=== PATIENT | female | born 1990 | race Caucasian/White ===

== ENCOUNTER 2019-05-26 17:28 | Inpatient (IN) | payer BC ==
[~2019-05-26 17:28] MED LIST: Acetaminophen 1,000 MG/100 ML Infusion Bottle IV ONE; Dexamethasone 4 MG/ML 5 ML MDV IVPUSH ONE; Glycopyrrolate 0.2 MG/ML 5 ML MDV IV ONE; HYDROmorphone 2 MG/ML SDV IV ONE; Lactated Ringers 1,000 ML IV ONE; Lidocaine 2% 5 ML SDV IV ONE; Midazolam 1 MG/ML 2 ML SDV IV ONE; Neostigmine Methylsulfate 10 MG/10 ML MDV IVPUSH ONE; Ondansetron 4 MG/2 ML SDV IVPUSH ONE; Propofol 200 MG/20 ML SDV IV ONE; Rocuronium 50 MG/5 ML Vial IV ONE; Succinylcholine 200 MG/10 ML MDV IV ONE; fentaNYL 100 MCG/2 ML SDV IV ONE
--- NOTE | 2019-05-26 17:48 | EDM.PDOC ---
ED HPI GENERAL MEDICAL PROBLEM - General Chief Complaint: Abdominal Pain Stated Complaint: ABD PAIN Time Seen by Provider: 05/26/19 17:48 - History of Present Illness INITIAL COMMENTS - FREE TEXT/NARRATIVE: patient is a previously healthy 29-year-old female who presents today with concern for stomach hurting, slight amount of vomiting and feeling very lightheaded. She states she was fine last night, had a shake for breakfast this morning and was just feeling kind of bloated. She said over the course of the day she's had worsening pain in her lower abdomen, and first vomited around 2 PM. She has not had any diarrhea and there was no blood in her vomit. She has dry heaved a couple times since then. She has not really eaten anything since noon today and wasn't really very hungry. She is sexually active, using condoms for control. She just started her period a couple days ago, states that it is slight tenderness also about a week early. She denies any fever, chest pain, shortness of breath, cough, recent upper respiratory tract symptoms, only thing she noticed today otherwise was in her hands were tingling slightly when she was first over in the clinic. She has no history of any previous abdominal surgeries, had a normal vaginal delivery approximately 11 months ago. She is otherwise healthy and takes no regular medications Abdominal Pain Score (Numeric/FACES): 7 - Related Data Allergies Allergy/AdvReac Type Severity Reaction Status Date / Time tioconazole Allergy Itching Verified 05/26/19 17:37 [From Monistat 1 (tioconazole)] Home Meds: Home Meds NK [No Known Home Meds] 05/26/19 [History] Past Medical History - Past Health History Medical/Surgical History: Denies Medical/Surgical History [employer] WORK[employer] History: Reports: : 1 Para: 1 ED ROS GENERAL - Review of Systems Review Of Systems: See Below Constitutional: Reports: Chills, Weakness, Diaphoresis. Denies: Fever HEENT: Reports: No Symptoms Respiratory: Reports: No Symptoms Cardiovascular: Reports: No Symptoms Endocrine: Reports: No Symptoms GI/Abdominal: Reports: Abdominal Pain, Decreased Appetite, Distension, Nausea, Vomiting. Denies: Diarrhea, Hematemesis, Melena : Reports: No Symptoms Musculoskeletal: Reports: No Symptoms Skin: Reports: No Symptoms Neurological: Reports: No Symptoms. Denies: Headache, Numbness, Tingling, Weakness Psychiatric: Reports: No Symptoms Hematologic/Lymphatic: Reports: No Symptoms Immunologic: Reports: No Symptoms ED EXAM, GENERAL - Physical Exam Exam: See Below Free Text/Narrative:: Gen.: Alert, slightly pale and Tired appearing. head is atraumatic, neck is supple, pupils are equal and reactive, facial muscles are symmetric, throat is without erythema and mucous members are moist. There is no obvious cervical adenopathy. Lungs are clear throughout with no wheezes or crackles and heart is tachycardic but regular. Abdomen has positive bowel sounds, is soft and tender across the whole lower abdomen. ?rebound in the right lower quadrant. negative Brown sign. There are no surgical scars present. Peripheral pulses +2 in both the upper and lower extremities and there is no lower extremity edema, she has had slight cooling of her feet. There is no obvious skin lesions or rashes and patient is very well-dressed. Psych: Mood and affect are appropriate, she makes good eye contact and answers questions appropriately Course - Vital Signs Text/Narrative:: initial impressionseems unlikely to be sepsis without fever and previously had healthy 29-year-old, more worried about intra-abdominal bleeding versus something like an acute appendicitis. minimal risk factors for intestinal obstruction. Wonder about possible . Labs ordered, fluid bolus started , zofran and morphine for pain Last Recorded V/S: Last Vital Signs Temp 37.3 C 05/27/19 07:54 Pulse 114 H 05/27/19 07:54 Resp 16 05/27/19 07:54 BP 92/53 L 05/27/19 07:54 Pulse Ox 97 05/27/19 07:54 - Orders/Labs/Meds Orders: Active Orders 24 hr Category Date Time Status Patient Status [ADT] Routine ADT 05/26/19 21:03 Active Notify Provider Consults [RC] ASDIRECTED Care 05/26/19 20:42 Active Oxygen Therapy [RC] PRN Care 05/26/19 21:03 Active RT Incentive Spirometry [RC] Q2HWA Care 05/26/19 21:03 Active Up With Assistance [RC] ASDIRECTED Care 05/26/19 21:03 Active Vital Signs [RC] 08,12,16,20,00,04 Care 05/26/19 21:03 Active Consult to Physician [CONS] Urgent Cons 05/26/19 20:41 Ordered Abdomen Pelvis w Cont [CT] Stat Exams 05/26/19 18:38 Taken Ketorolac [Toradol] Med 05/26/19 21:09 Active 30 mg IVPUSH Q6H PRN Lactated Ringers [Ringers, Lactated] 1,000 ml Med 05/26/19 21:15 Active IV ASDIRECTED Morphine Med 05/26/19 17:52 Active 2 mg IVPUSH Q1H PRN Morphine Med 05/26/19 21:03 Active 2 mg IVPUSH Q1H PRN Ondansetron [Zofran] Med 05/26/19 17:52 Active 4 mg IVPUSH Q4H PRN Piperacillin/Tazobactam [Zosyn] 3.375 gm Med 05/26/19 22:00 Active Sodium Chloride 0.9% [Normal Saline] 50 ml IV Q6H Resuscitation Status Routine Resus Stat 05/26/19 21:03 Ordered Medication Orders Piperacillin Sod/Tazobactam (Sod 3.375 gm/ Sodium Chloride) 50 mls @ 100 mls/ hr IV Q6H MAYKEL Last Admin: 05/27/19 04:52 Dose: 100 mls/hr Admin: 05/26/19 21:39 Dose: 100 mls/hr Lactated Ringer's (Ringers, Lactated) 1,000 mls @ 150 mls/hr IV ASDIRECTED MAYKEL Last Admin: 05/27/19 04:49 Dose: 150 mls/hr Infusion: 05/27/19 04:49 Dose: 150 mls/hr Admin: 05/26/19 22:26 Dose: 150 mls/hr Ketorolac Tromethamine (Toradol) 30 mg IVPUSH Q6H PRN PRN Reason: Abdominal Pain Stop: 05/31/19 21:09 Last Admin: 05/27/19 08:01 Dose: 30 mg Admin: 05/26/19 22:19 Dose: 30 mg Morphine Sulfate (Morphine) 2 mg IVPUSH Q1H PRN PRN Reason: Pain Last Admin: 05/27/19 04:46 Dose: 2 mg Admin: 05/26/19 18:16 Dose: 2 mg Morphine Sulfate (Morphine) 2 mg IVPUSH Q1H PRN PRN Reason: Pain (severe 7-10) Ondansetron HCl (Zofran) 4 mg IVPUSH Q4H PRN PRN Reason: Nausea/Vomiting Last Admin: 05/26/19 18:14 Dose: 4 mg Sodium Chloride (Saline Flush) 10 ml FLUSH ASDIRECTED PRN PRN Reason: Keep Vein Open Last Admin: 05/27/19 05:35 Dose: 10 ml Labs: Laboratory Tests 05/26/19 05/26/19 05/26/19 Range/Units 14:55 17:55 17:55 WBC 30.0 H* (4.5-12.0) X10-3/uL RBC 5.31 H (3.23-5.20) x10(6)uL Hgb 14.7 (11.5-15.5) g/dL Hct 43.5 (30.0-51.3) % MCV 81.9 (80-96) fL MCH 27.6 L (27.7-33.6) pg MCHC 33.7 (32.2-35.4) g/dL RDW 13.3 (11.5-15.5) % Plt Count 319 (125-369) X10(3)uL MPV 8.7 (7.4-10.4) fL Add Manual Diff Yes Neutrophils % (Manual) 80 (46-82) % Band Neutrophils % 10 H (0-6) % Lymphocytes % (Manual) 6 L (13-37) % Monocytes % (Manual) 4 (4-12) % PT 11.3 H (8.7-11.1) INR 1.16 H (0.89-1.13) Sodium 140 (135-145) mmol/L Potassium 3.4 L (3.5-5.3) mmol/L Chloride 103 (100-110) mmol/L Carbon Dioxide 27 (21-32) mmol/L BUN 14 (7-18) mg/dL Creatinine 0.7 (0.55-1.02) mg/dL Est Cr Clr Drug Dosing TNP Estimated GFR (MDRD) > 60 (>60) BUN/Creatinine Ratio 20.0 (9-20) Glucose 98 (80-116) mg/dL Lactic Acid (0.4-2.2) mmol/L Calcium 9.0 (8.6-10.2) mg/dL Total Bilirubin 0.6 (0.1-1.3) mg/dL AST 11 (5-25) IU/L ALT 20 (12-36) U/L Alkaline Phosphatase 83 (56-112) IU/L C-Reactive Protein (0.5-0.9) mg/dL Total Protein 7.4 (6.0-8.0) g/dL Albumin 3.7 (3.5-5.2) g/dL Globulin 3.7 g/dL Albumin/Globulin Ratio 1.0 Amylase 48 (25-115) U/L HCG, Quant (<5) mIU/mL Urine Color (YELLOW) Urine Appearance (CLEAR) Urine pH (5.0-6.5) Ur Specific [place] (1.010-1.025) Urine Protein (NEGATIVE) mg/dL Urine Glucose (UA) (NORMAL) mg/dL Urine Ketones (NEGATIVE) mg/dL Urine Occult Blood (NEGATIVE) Urine Nitrite (NEGATIVE) Urine Bilirubin (NEGATIVE) Urine Urobilinogen (NEGATIVE) mg/dL Ur Leukocyte Esterase (NEGATIVE) Urine RBC (0-5) Urine WBC (0-5) Ur Squamous Epith Cells (NS,R,O) Urine Bacteria (NS) 05/26/19 05/26/19 05/26/19 Range/Units 17:55 17:55 20:19 WBC (4.5-12.0) X10-3/uL RBC (3.23-5.20) x10(6)uL Hgb (11.5-15.5) g/dL Hct (30.0-51.3) % MCV (80-96) fL MCH (27.7-33.6) pg MCHC (32.2-35.4) g/dL RDW (11.5-15.5) % Plt Count (125-369) X10(3)uL MPV (7.4-10.4) fL Add Manual Diff Neutrophils % (Manual) (46-82) % Band Neutrophils % (0-6) % Lymphocytes % (Manual) (13-37) % Monocytes % (Manual) (4-12) % PT (8.7-11.1) INR (0.89-1.13) Sodium (135-145) mmol/L Potassium (3.5-5.3) mmol/L Chloride (100-110) mmol/L Carbon Dioxide (21-32) mmol/L BUN (7-18) mg/dL Creatinine (0.55-1.02) mg/dL Est Cr Clr Drug Dosing Estimated GFR (MDRD) (>60) BUN/Creatinine Ratio (9-20) Glucose (80-116) mg/dL Lactic Acid 1.6 (0.4-2.2) mmol/L Calcium (8.6-10.2) mg/dL Total Bilirubin (0.1-1.3) mg/dL AST (5-25) IU/L ALT (12-36) U/L Alkaline Phosphatase (56-112) IU/L C-Reactive Protein 5.4 H* (0.5-0.9) mg/dL Total Protein (6.0-8.0) g/dL Albumin (3.5-5.2) g/dL Globulin g/dL Albumin/Globulin Ratio Amylase (25-115) U/L HCG, Quant < 5 L (<5) mIU/mL Urine Color Yellow (YELLOW) Urine Appearance Clear (CLEAR) Urine pH 6.0 (5.0-6.5) Ur Specific [place] 1.010 (1.010-1.025) Urine Protein Negative (NEGATIVE) mg/dL Urine Glucose (UA) Normal (NORMAL) mg/dL Urine Ketones 15 H (NEGATIVE) mg/dL Urine Occult Blood Moderate H (NEGATIVE) Urine Nitrite Negative (NEGATIVE) Urine Bilirubin Negative (NEGATIVE) Urine Urobilinogen Normal (NEGATIVE) mg/dL Ur Leukocyte Esterase Negative (NEGATIVE) Urine RBC 5-10 H (0-5) Urine WBC 0-5 (0-5) Ur Squamous Epith Cells Occasional (NS,R,O) Urine Bacteria Few H (NS) Meds: Medications Generic Name Dose Route Start Last Admin Trade Name Freq PRN Reason Stop Dose Admin Piperacillin Sod/Tazobactam 50 mls @ 100 mls/hr 05/26/19 22:00 05/27/19 04:52 Sod 3.375 gm/ Sodium Chloride IV 100 mls/hr Q6H MAYKEL Administration Lactated Ringer's 1,000 mls @ 150 mls/hr 05/26/19 21:15 05/27/19 04:49 Ringers, Lactated IV 150 mls/hr ASDIRECTED MAYKEL Administration Ketorolac Tromethamine 30 mg 05/26/19 21:09 05/27/19 08:01 Toradol IVPUSH 05/31/19 21:09 30 mg Q6H PRN Administration Abdominal Pain Morphine Sulfate 2 mg 05/26/19 17:52 05/27/19 04:46 Morphine IVPUSH 2 mg Q1H PRN Administration Pain Morphine Sulfate 2 mg 05/26/19 21:03 Morphine IVPUSH Q1H PRN Pain (severe 7-10) Ondansetron HCl 4 mg 05/26/19 17:52 05/26/19 18:14 Zofran IVPUSH 4 mg Q4H PRN Administration Nausea/Vomiting Sodium Chloride 10 ml 05/27/19 05:59 05/27/19 05:35 Saline Flush FLUSH 10 ml ASDIRECTED PRN Administration Keep Vein Open Discontinued Medications Generic Name Dose Route Start Last Admin Trade Name Freq PRN Reason Stop Dose Admin Cefoxitin Sodium 2 gm 05/26/19 20:20 05/26/19 20:33 Mefoxin IVPUSH 05/26/19 20:21 2 gm ONETIME ONE Administration Sodium Chloride 1,000 mls @ 999 mls/hr 05/26/19 17:49 05/26/19 18:00 Normal Saline IV 05/26/19 18:49 999 mls/hr .BOLUS ONE Administration Sodium Chloride 1,000 mls @ 1,000 mls/hr 05/26/19 19:13 05/26/19 19:00 Normal Saline IV 05/26/19 20:12 1,000 mls/hr .BOLUS ONE Administration Iopamidol 75 ml 05/26/19 19:04 05/26/19 19:20 Isovue-370 (76%) IV 05/26/19 19:05 75 ml ONETIME ONE Administration Morphine Sulfate 4 mg 05/26/19 19:13 05/26/19 19:29 Morphine IVPUSH 05/26/19 19:14 4 mg ONETIME ONE Administration - Re-Assessments/Exams Free Text/Narrative Re-Assessment/Exam: 05/26/19 18:40 CMP unremarkable, will get CT abdomen/pelvis with contrast CBC still pending elevated CRP, lactic acid normal morphine helpful for pain signout given to Dr. Jackson at 1900 Departure - Departure Time of Disposition: 00:00 Disposition: Refer to Observation Clinical Impression: Peritonitis (acute) generalized - Discharge Information *PRESCRIPTION DRUG MONITORING PROGRAM REVIEWED*: Not Applicable *COPY OF PRESCRIPTION DRUG MONITORING REPORT IN PATIENT PANCHITO: Not Applicable - My Orders Last 24 Hours: My Active Orders 05/26/19 17:52 Morphine 2 mg IVPUSH Q1H PRN Ondansetron [Zofran] 4 mg IVPUSH Q4H PRN 05/26/19 18:38 Abdomen Pelvis w Cont [CT] Stat - Assessment/Plan Last 24 Hours: My Active Orders 05/26/19 17:52 Morphine 2 mg IVPUSH Q1H PRN Ondansetron [Zofran] 4 mg IVPUSH Q4H PRN 05/26/19 18:38 Abdomen Pelvis w Cont [CT] Stat
[2019-05-26] MEDS ORDERED: Sodium Chloride 0.9% 1,000 ML IV ONE ×2 (17:49→19:13)
[2019-05-26] MEDS: Ondansetron 4 MG/2 ML SDV IVPUSH PRN (18:14)
[2019-05-26] MEDS: Morphine 2 MG/ML Syringe IVPUSH PRN (18:16)
[2019-05-26] MEDS ORDERED: Iopamidol 755 Mg/ML 75 ML Bottle IV ONE (19:04)
[2019-05-26] MEDS ORDERED: Morphine 4 MG/ML Syringe IVPUSH ONE (19:13)
[2019-05-26] MEDS ORDERED: cefOXitin 2 GM Vial IVPUSH ONE (20:20)
[2019-05-26] MEDS ORDERED: Morphine 2 MG/ML Syringe IVPUSH PRN (21:03)
[2019-05-26] MEDS: Piperacillin/Tazobactam 3.375 GM in Sodium Chloride 0.9% 50 ML IV SCH (21:39)
[2019-05-26] MEDS: Ketorolac 30 MG/ML SDV IVPUSH PRN (22:19)
[2019-05-26] MEDS: Lactated Ringers 1,000 ML IV SCH (22:26)
[2019-05-27] MEDS: Morphine 2 MG/ML Syringe IVPUSH PRN ×2 (04:46→12:20)
[2019-05-27] MEDS: Lactated Ringers 1,000 ML IV SCH ×3 (04:49→20:39)
[2019-05-27] MEDS: Piperacillin/Tazobactam 3.375 GM in Sodium Chloride 0.9% 50 ML IV SCH ×4 (04:52→21:22)
[2019-05-27] MEDS: Sodium Chloride 0.9% 10 ML Syringe FLUSH PRN (05:35)
--- NOTE | 2019-05-27 07:55 | ER ---
DATE SEEN: 05/26/2019 ADDENDUM: I saw this patient after I came in at 1900 hours. The patient was initially seen by Dr. Allyssa Thurman. She presented with acute abdominal pain in the right lower quadrant and the left lower quadrant, was sudden onset. Described pain to be moderate to severe. One episode of vomiting, but no constipation or diarrhea. Denied fever or urinary symptoms and no . PHYSICAL EXAMINATION: GENERAL: She is sick-appearing. VITAL SIGNS: Repeat blood pressure is 105/64 and pulse is 126. ABDOMEN: Soft, mildly distended and tender in the right lower and left lower quadrants with rebound and mild rigidity. Bowel sounds are present. CHEST and HEART: Normal to auscultation. LABORATORY DATA: White cell count 30,000. CT: Inflammation, possibly peritonitis with no specific source noted. IMPRESSION: Acute peritonitis. PLAN: Due to leukocytosis, tachycardia, I gave 2 L of crystalloid, and 1 dose of cefoxitin. I consulted Dr. Shoemaker. She was also given some morphine for pain control. /[id number] ROSELYN/JOSE ANTONIO
[2019-05-27] MEDS: Ketorolac 30 MG/ML SDV IVPUSH PRN ×2 (08:01→15:28)
--- NOTE | 2019-05-27 08:02 | HP ---
H&P AND CONSULTATION REPORT DATE SEEN: 05/26/2019 HISTORY OF PRESENT ILLNESS: This 29-year-old female was seen in the emergency room at the request of Dr. Jackson for evaluation of abdominal pain. The patient began feeling ill early this afternoon, although was having some mild abdominal fullness this morning. She left work about 1400 hours and was nauseous and did have an emesis. She also started having worsening abdominal pain, mostly in her lower abdomen at that time. She did not have any fever, sweats or chills. Last bowel movement was this afternoon, which was soft, but otherwise normal. She started her menses yesterday. Appetite has been good up to this point, and she has been feeling well prior to today. PAST MEDICAL HISTORY: No previous abdominal surgeries or serious medical problems. MEDICATIONS: Reviewed. ALLERGIES: Medical allergies reviewed. REVIEW OF SYSTEMS: Unchanged from when she was seen by the emergency room physician. PHYSICAL EXAMINATION: GENERAL: Reveals a pleasant lady who appears somewhat pale, but in no acute distress. VITAL SIGNS: Her vitals are reviewed, and she is tachycardic. She had been afebrile up to now, where she did have a temperature of 102. Lungs: Clear. Respirations are nonlabored. HEART: Tachycardic, but no murmur. ABDOMEN: Soft and flat with diffuse tenderness. This seems to be more so in the lower abdomen. There are no hernias or masses that are palpable. LABORATORY DATA: Laboratory information is reviewed. WBC is 30,000. CRP is elevated. Urinalysis is essentially normal. IMAGING STUDIES: CT scan was reviewed with Dr. Joya. It is unclear as to what is causing her pain. There is inflammation throughout her lower abdomen, and it appears there is an ileus with the dilated fluid-filled loops of small bowel. There is no evidence of free air or perforation. Appendix is not clearly visualized. This may represent appendicitis with peritonitis. ASSESSMENT: Abdominal pain with elevated WBC. PLAN: Findings were reviewed with the patient, and with the amount of inflammation present, I feel laparoscopic appendectomy would be very difficult and likely converted to an open procedure. Crohn's disease or other inflammatory process is also a possibility. I recommended that she be admitted to the hospital and started on IV antibiotics and observed for the next 12 to 24 hours. If she improves, further evaluation and probable interval appendectomy would be performed. If she is not improving tomorrow, then surgery would be likely. /[id number] MAHENDRA/JOSE ANTONIO DE LEON
--- NOTE | 2019-05-27 09:17 | CT ---
INDICATION: Abdominal pain, tachycardia, white blood count 30,000. CT ABDOMEN AND PELVIS WITH CONTRAST: Spiral 3.75 mm axial sections were obtained through the abdomen and pelvis with 75 mL Isovue 370 at 2 mL/second, with sagittal and coronal reconstructions, 05/26/19 - no comparisons. Total exam DLP = 364.93 mGy-cm. Lower lung collins and pleural spaces visualized appeared normal. The upper abdominal organs appeared normal, including the gallbladder, which does appear somewhat distended, but this may be on the basis of NPO status. No demonstrated gallstones were seen. Multiple loops of dilated small bowel were noted with air fluid levels in a stepladder fashion in the abdomen down to the right lower quadrant, where a long loop of what appears to be terminal ileum has a markedly thickened wall. There is also a tiny gas bubble surrounded by relatively high density tissue in the pericecal area, which could represent appendicitis with possibility of abscess in that area. Additionally, there is fluid in the pericolic gutter extending into the pelvis with moderate ascites in the pelvis. There is gas and stool in the colon distal to the apparent obstructive process, which may be on a paralytic basis, rather than a mechanically obstructive basis. No other organomegaly or mass lesions were identified in the abdomen or pelvis. No definite pathologic calcifications were seen. No evidence of free air was identified. No ventral hernia or inguinal hernia was seen. No definite retroperitoneal mass is noted. IMPRESSION: Findings are compatible with peritonitis, possibly with a small abscess, pericecal in location, with inflammatory process of terminal ileum with thickened wall, adjacent peritonitis and ascites extending into the pelvis. The appendix itself was not definitely visualized, although appendicitis certainly cannot be excluded as the etiology of at least a portion of these findings. Report was called to Dr. Jackson at 2008 hours on 05/26/19. [facility] CENTERAnjana
[2019-05-27] MEDS: Ondansetron 4 MG/2 ML SDV IVPUSH PRN (12:20)
--- NOTE | 2019-05-27 13:02 | PCM.PN ---
- General Info Date of Service: 05/27/19 Functional Status: Reports: Pain Controlled, Ambulating, Urinating - Review of Systems General: Reports: Fever (last pm, none since). Denies: Chills Pulmonary: Reports: No Symptoms Cardiovascular: Reports: No Symptoms Gastrointestinal: Reports: Abdominal Pain (a little better, more localized to lower abdomen). Denies: Flatus, Nausea, Vomiting Genitourinary: Reports: No Symptoms - Patient Data Vitals - Most Recent: Last Vital Signs Temp 99.5 F 05/27/19 12:00 Pulse 105 H 05/27/19 12:00 Resp 16 05/27/19 12:00 BP 95/58 L 05/27/19 12:00 Pulse Ox 99 05/27/19 12:00 Weight - Most Recent: 66.315 kg I&O - Last 24 Hours: Intake & Output 05/26/19 05/27/19 05/27/19 22:59 06:59 14:59 Output Total 100 Balance -100 Lab Results Last 24 Hours: Laboratory Results - last 24 hr 05/26/19 05/26/19 05/26/19 Range/Units 14:55 17:55 17:55 WBC 30.0 H* (4.5-12.0) X10-3/uL RBC 5.31 H (3.23-5.20) x10(6)uL Hgb 14.7 (11.5-15.5) g/dL Hct 43.5 (30.0-51.3) % MCV 81.9 (80-96) fL MCH 27.6 L (27.7-33.6) pg MCHC 33.7 (32.2-35.4) g/dL RDW 13.3 (11.5-15.5) % Plt Count 319 (125-369) X10(3)uL MPV 8.7 (7.4-10.4) fL Add Manual Diff Yes Neutrophils % (Manual) 80 (46-82) % Band Neutrophils % 10 H (0-6) % Lymphocytes % (Manual) 6 L (13-37) % Monocytes % (Manual) 4 (4-12) % Hypersegmented Neuts Toxic Granulation (NOT SEEN) PT 11.3 H (8.7-11.1) INR 1.16 H (0.89-1.13) Sodium 140 (135-145) mmol/L Potassium 3.4 L (3.5-5.3) mmol/L Chloride 103 (100-110) mmol/L Carbon Dioxide 27 (21-32) mmol/L BUN 14 (7-18) mg/dL Creatinine 0.7 (0.55-1.02) mg/dL Est Cr Clr Drug Dosing TNP Estimated GFR (MDRD) > 60 (>60) BUN/Creatinine Ratio 20.0 (9-20) Glucose 98 (80-116) mg/dL Lactic Acid (0.4-2.2) mmol/L Calcium 9.0 (8.6-10.2) mg/dL Total Bilirubin 0.6 (0.1-1.3) mg/dL AST 11 (5-25) IU/L ALT 20 (12-36) U/L Alkaline Phosphatase 83 (56-112) IU/L C-Reactive Protein (0.5-0.9) mg/dL Total Protein 7.4 (6.0-8.0) g/dL Albumin 3.7 (3.5-5.2) g/dL Globulin 3.7 g/dL Albumin/Globulin Ratio 1.0 Amylase 48 (25-115) U/L HCG, Quant (<5) mIU/mL Urine Color (YELLOW) Urine Appearance (CLEAR) Urine pH (5.0-6.5) Ur Specific [place] (1.010-1.025) Urine Protein (NEGATIVE) mg/dL Urine Glucose (UA) (NORMAL) mg/dL Urine Ketones (NEGATIVE) mg/dL Urine Occult Blood (NEGATIVE) Urine Nitrite (NEGATIVE) Urine Bilirubin (NEGATIVE) Urine Urobilinogen (NEGATIVE) mg/dL Ur Leukocyte Esterase (NEGATIVE) Urine RBC (0-5) Urine WBC (0-5) Ur Squamous Epith Cells (NS,R,O) Urine Bacteria (NS) 05/26/19 05/26/19 05/26/19 Range/Units 17:55 17:55 20:19 WBC (4.5-12.0) X10-3/uL RBC (3.23-5.20) x10(6)uL Hgb (11.5-15.5) g/dL Hct (30.0-51.3) % MCV (80-96) fL MCH (27.7-33.6) pg MCHC (32.2-35.4) g/dL RDW (11.5-15.5) % Plt Count (125-369) X10(3)uL MPV (7.4-10.4) fL Add Manual Diff Neutrophils % (Manual) (46-82) % Band Neutrophils % (0-6) % Lymphocytes % (Manual) (13-37) % Monocytes % (Manual) (4-12) % Hypersegmented Neuts Toxic Granulation (NOT SEEN) PT (8.7-11.1) INR (0.89-1.13) Sodium (135-145) mmol/L Potassium (3.5-5.3) mmol/L Chloride (100-110) mmol/L Carbon Dioxide (21-32) mmol/L BUN (7-18) mg/dL Creatinine (0.55-1.02) mg/dL Est Cr Clr Drug Dosing Estimated GFR (MDRD) (>60) BUN/Creatinine Ratio (9-20) Glucose (80-116) mg/dL Lactic Acid 1.6 (0.4-2.2) mmol/L Calcium (8.6-10.2) mg/dL Total Bilirubin (0.1-1.3) mg/dL AST (5-25) IU/L ALT (12-36) U/L Alkaline Phosphatase (56-112) IU/L C-Reactive Protein 5.4 H* (0.5-0.9) mg/dL Total Protein (6.0-8.0) g/dL Albumin (3.5-5.2) g/dL Globulin g/dL Albumin/Globulin Ratio Amylase (25-115) U/L HCG, Quant < 5 L (<5) mIU/mL Urine Color Yellow (YELLOW) Urine Appearance Clear (CLEAR) Urine pH 6.0 (5.0-6.5) Ur Specific [place] 1.010 (1.010-1.025) Urine Protein Negative (NEGATIVE) mg/dL Urine Glucose (UA) Normal (NORMAL) mg/dL Urine Ketones 15 H (NEGATIVE) mg/dL Urine Occult Blood Moderate H (NEGATIVE) Urine Nitrite Negative (NEGATIVE) Urine Bilirubin Negative (NEGATIVE) Urine Urobilinogen Normal (NEGATIVE) mg/dL Ur Leukocyte Esterase Negative (NEGATIVE) Urine RBC 5-10 H (0-5) Urine WBC 0-5 (0-5) Ur Squamous Epith Cells Occasional (NS,R,O) Urine Bacteria Few H (NS) 05/27/19 Range/Units 06:00 WBC 22.6 H (4.5-12.0) X10-3/uL RBC 3.99 (3.23-5.20) x10(6)uL Hgb 11.0 L D (11.5-15.5) g/dL Hct 32.4 D (30.0-51.3) % MCV 81.2 (80-96) fL MCH 27.7 (27.7-33.6) pg MCHC 34.1 (32.2-35.4) g/dL RDW 13.4 (11.5-15.5) % Plt Count 253 (125-369) X10(3)uL MPV 8.5 (7.4-10.4) fL Add Manual Diff Yes Neutrophils % (Manual) 87 H (46-82) % Band Neutrophils % 4 (0-6) % Lymphocytes % (Manual) 6 L (13-37) % Monocytes % (Manual) 3 L (4-12) % Hypersegmented Neuts Moderate Toxic Granulation Moderate H (NOT SEEN) PT (8.7-11.1) INR (0.89-1.13) Sodium (135-145) mmol/L Potassium (3.5-5.3) mmol/L Chloride (100-110) mmol/L Carbon Dioxide (21-32) mmol/L BUN (7-18) mg/dL Creatinine (0.55-1.02) mg/dL Est Cr Clr Drug Dosing Estimated GFR (MDRD) (>60) BUN/Creatinine Ratio (9-20) Glucose (80-116) mg/dL Lactic Acid (0.4-2.2) mmol/L Calcium (8.6-10.2) mg/dL Total Bilirubin (0.1-1.3) mg/dL AST (5-25) IU/L ALT (12-36) U/L Alkaline Phosphatase (56-112) IU/L C-Reactive Protein (0.5-0.9) mg/dL Total Protein (6.0-8.0) g/dL Albumin (3.5-5.2) g/dL Globulin g/dL Albumin/Globulin Ratio Amylase (25-115) U/L HCG, Quant (<5) mIU/mL Urine Color (YELLOW) Urine Appearance (CLEAR) Urine pH (5.0-6.5) Ur Specific [place] (1.010-1.025) Urine Protein (NEGATIVE) mg/dL Urine Glucose (UA) (NORMAL) mg/dL Urine Ketones (NEGATIVE) mg/dL Urine Occult Blood (NEGATIVE) Urine Nitrite (NEGATIVE) Urine Bilirubin (NEGATIVE) Urine Urobilinogen (NEGATIVE) mg/dL Ur Leukocyte Esterase (NEGATIVE) Urine RBC (0-5) Urine WBC (0-5) Ur Squamous Epith Cells (NS,R,O) Urine Bacteria (NS) Med Orders - Current: Current Medications Piperacillin Sod/Tazobactam (Sod 3.375 gm/ Sodium Chloride) 50 mls @ 100 mls/ hr IV Q6H [facility] Last Admin: 05/27/19 09:33 Dose: 100 mls/hr Lactated Ringer's (Ringers, Lactated) 1,000 mls @ 150 mls/hr IV ASDIRECTED [facility] Last Admin: 05/27/19 04:49 Dose: 150 mls/hr Ketorolac Tromethamine (Toradol) 30 mg IVPUSH Q6H PRN PRN Reason: Abdominal Pain Stop: 05/31/19 21:09 Last Admin: 05/27/19 08:01 Dose: 30 mg Morphine Sulfate (Morphine) 2 mg IVPUSH Q1H PRN PRN Reason: Pain Last Admin: 05/27/19 12:20 Dose: 2 mg Morphine Sulfate (Morphine) 2 mg IVPUSH Q1H PRN PRN Reason: Pain (severe 7-10) Ondansetron HCl (Zofran) 4 mg IVPUSH Q4H PRN PRN Reason: Nausea/Vomiting Last Admin: 05/27/19 12:20 Dose: 4 mg Sodium Chloride (Saline Flush) 10 ml FLUSH ASDIRECTED PRN PRN Reason: Keep Vein Open Last Admin: 05/27/19 05:35 Dose: 10 ml Discontinued Medications Cefoxitin Sodium (Mefoxin) 2 gm IVPUSH ONETIME ONE Stop: 05/26/19 20:21 Last Admin: 05/26/19 20:33 Dose: 2 gm Sodium Chloride (Normal Saline) 1,000 mls @ 999 mls/hr IV .BOLUS ONE Stop: 05/26/19 18:49 Last Admin: 05/26/19 18:00 Dose: 999 mls/hr Sodium Chloride (Normal Saline) 1,000 mls @ 1,000 mls/hr IV .BOLUS ONE Stop: 05/26/19 20:12 Last Admin: 05/26/19 19:00 Dose: 1,000 mls/hr Iopamidol (Isovue-370 (76%)) 75 ml IV ONETIME ONE Stop: 05/26/19 19:05 Last Admin: 05/26/19 19:20 Dose: 75 ml Morphine Sulfate (Morphine) 4 mg IVPUSH ONETIME ONE Stop: 05/26/19 19:14 Last Admin: 05/26/19 19:29 Dose: 4 mg - Exam General: Alert, Oriented Lungs: Clear to Auscultation, Normal Respiratory Effort GI/Abdominal Exam: Soft, No Mass, Distended (slightly), Tender (in lower abd, less than last pm). No: Guarding, Rigid - Problem List Review Problem List Initiated/Reviewed/Updated: Yes - My Orders Last 24 Hours: My Active Orders 05/26/19 21:03 Patient Status [ADT] Routine Oxygen Therapy [RC] PRN RT Incentive Spirometry [RC] Q2HWA Up With Assistance [RC] ASDIRECTED Vital Signs [RC] 08,12,16,20,00,04 Morphine 2 mg IVPUSH Q1H PRN Resuscitation Status Routine 05/26/19 21:09 Ketorolac [Toradol] 30 mg IVPUSH Q6H PRN 05/26/19 21:15 Lactated Ringers [Ringers, Lactated] 1,000 ml IV ASDIRECTED 05/26/19 22:00 Piperacillin/Tazobactam [Zosyn] 3.375 gm Sodium Chloride 0.9% [Normal Saline] 50 ml IV Q6H 05/27/19 05:59 Sodium Chloride 0.9% [Saline Flush] 10 ml FLUSH ASDIRECTED PRN - Assessment Assessment:: Abd Pain, improved Elevated WBC, improved - Plan Plan:: Will cont IV antibiotics Recheck labs in am
--- NOTE | 2019-05-27 21:28 | PCM.SN ---
- Free Text/Narrative Note: Patient has had 2 high fever spikes this pm, pain about the same. Recommend exp laparoscopy, possible open to find source of infection. She understands this could include appy, bowel resection, or ostomy. present, consent obtained.
--- NOTE | 2019-05-27 23:44 | PCM.OPNOTE ---
- General Post-Op/Procedure Note Date of Surgery/Procedure: 05/27/19 Operative Procedure(s): Expl Lap, appy Findings: Crohn's of terminal ileum Pre Op Diagnosis: Acute Abd Post-Op Diagnosis: Same Anesthesia Technique: General ET Tube Primary Surgeon: Osmany Shoemaker Counter Clerk [employer]ractor [employer]: Cliff Jaramillo Pathology: Appendix cultures EBL in mLs: 25 Complications: None Condition: Stable Free Text/Narrative:: Intake & Output 05/27/19 05/27/19 05/28/19 14:59 22:59 06:59 Intake Total 1046 Output Total 350 Balance 696
[2019-05-28] MEDS: Pantoprazole 40 MG Vial IVPUSH SCH ×2 (01:13→23:18)
[2019-05-28] MEDS: Hydrocortisone Sodium Succinate 100 MG/2 ML SDV IV SCH ×3 (01:16→23:13)
--- NOTE | 2019-05-28 02:24 | OR ---
DATE OF OPERATION: 05/27/2019 SURGEON: Osmany Shoemaker MD PREOPERATIVE DIAGNOSIS: Acute abdominal pain with fevers and elevated white blood cell count. POSTOPERATIVE DIAGNOSIS: Crohn disease of terminal ileum. PROCEDURE PERFORMED: Exploratory laparoscopy converted to laparotomy with appendectomy and irrigation of peritoneal cavity. DIGITAL X RAY SERVICE ENGINEER: Cliff Jaramillo MD. He was integral for assistance and retraction and reducing surgical time. ANESTHESIA: General. DESCRIPTION OF PROCEDURE: The patient was brought to the operating room, where general endotracheal anesthesia was administered. The abdomen was prepped with ChloraPrep and draped sterilely. An infraumbilical incision was made and extended into the peritoneal cavity without difficulty. Two 5 mm ports were placed inferiorly. The general exploration revealed inflammation in the right lower quadrant with a fair amount of brownish yellow peritoneal fluid present. This was aspirated and sent for culture. Approximately 500 mL of ascites fluid was present. I was able to separate the inflammatory terminal ileum from the cecum and removed the adherent omentum, but was unable to identify any appendix. Visualization was hard because of all the swelling. Since I could not be certain what was going on and could not locate the appendix, I converted this to an open procedure through a lower midline incision. [employer] Retractor System was set up. The terminal ileum and cecum were off the right sidewall to help with visualization. The appendix was identified as retrocecal and retroperitoneal and was normal in appearance. The last 30 cm of the terminal ileum was classic for Crohn disease with thickening of the mesentery and fat creeping along the bowel surface. There was no perforation, abscess, or stricture visualized. Her adnexa were normal to palpation. The sigmoid colon had hard stool, but was otherwise normal to palpation. No other abnormalities were seen or palpated. The appendix was removed by at its base and doubly tying it with 0 Vicryl and then transecting it. Mesoappendix was taken down with hemostats and 0 Vicryl ties. Appendix will be sent for pathology review. There was a small serosal tear on the cecum from the mobilization that was not causing any problems and nothing was done with it. The abdomen was irrigated with a liter of warm saline and return was clear and hemostasis assured. The stomach was palpated and was not distended, so a nasogastric tube was not placed. Fascia was closed with running #2 Prolene. Skin was closed with bethany. A sterile dressing was applied. The patient tolerated the procedure well. ESTIMATED BLOOD LOSS: 25 mL. DISPOSITION: She returned to postanesthesia in stable condition. /[id number] MAHENDRA/JOSE ANTONIO
[2019-05-28] MEDS: Ketorolac 30 MG/ML SDV IVPUSH PRN ×4 (03:34→23:15)
[2019-05-28] MEDS: Piperacillin/Tazobactam 3.375 GM in Sodium Chloride 0.9% 50 ML IV SCH ×4 (03:37→21:41)
[2019-05-28] MEDS: Lactated Ringers 1,000 ML IV SCH ×3 (08:07→23:24)
--- NOTE | 2019-05-28 15:46 | PCM.SURGPN ---
- General Info Date of Service: 05/28/19 POD#: 1 Functional Status: Reports: Pain Controlled, Ambulating, Urinating - Review of Systems General: Reports: No Symptoms. Denies: Fever Pulmonary: Reports: No Symptoms Cardiovascular: Reports: No Symptoms Gastrointestinal: Reports: Abdominal Pain (mild incisional). Denies: Flatus, Nausea Genitourinary: Reports: No Symptoms - Patient Data Vitals - Most Recent: Last Vital Signs Temp 98.8 F 05/28/19 12:00 Pulse 68 05/28/19 12:00 Resp 14 05/28/19 12:00 BP 99/64 05/28/19 12:00 Pulse Ox 99 05/28/19 12:00 Weight - Most Recent: 66.315 kg I&O - Last 24 Hours: Intake & Output 05/28/19 05/28/19 05/28/19 06:59 14:59 22:59 Intake Total 1500 635 Balance 1500 635 Lab Results Last 24 Hrs: Laboratory Results - last 24 hr 05/28/19 05/28/19 Range/Units 06:48 06:48 WBC 26.1 H (4.5-12.0) X10-3/uL RBC 3.69 (3.23-5.20) x10(6)uL Hgb 10.6 L (11.5-15.5) g/dL Hct 30.6 (30.0-51.3) % MCV 82.8 (80-96) fL MCH 28.8 (27.7-33.6) pg MCHC 34.7 (32.2-35.4) g/dL RDW 13.4 (11.5-15.5) % Plt Count 212 (125-369) X10(3)uL MPV 9.1 (7.4-10.4) fL Add Manual Diff Yes Neutrophils % (Manual) 92 H (46-82) % Band Neutrophils % 6 (0-6) % Lymphocytes % (Manual) 2 L (13-37) % Hypersegmented Neuts Few Toxic Granulation Moderate H (NOT SEEN) C-Reactive Protein 49.5 H* (0.5-0.9) mg/dL Med Orders - Current: Current Medications Hydrocortisone Sodium Succinate (Solu-Cortef) 50 mg IV Q12H [facility] Last Admin: 05/28/19 10:55 Dose: 50 mg Piperacillin Sod/Tazobactam (Sod 3.375 gm/ Sodium Chloride) 50 mls @ 100 mls/ hr IV Q6H [facility] Last Admin: 05/28/19 10:25 Dose: 100 mls/hr Lactated Ringer's (Ringers, Lactated) 1,000 mls @ 150 mls/hr IV ASDIRECTED [facility] Last Admin: 05/28/19 08:07 Dose: 150 mls/hr Ketorolac Tromethamine (Toradol) 30 mg IVPUSH Q6H PRN PRN Reason: Abdominal Pain Stop: 05/31/19 21:09 Last Admin: 05/28/19 10:22 Dose: 30 mg Morphine Sulfate (Morphine) 2 mg IVPUSH Q1H PRN PRN Reason: Pain Last Admin: 05/27/19 12:20 Dose: 2 mg Morphine Sulfate (Morphine) 2 mg IVPUSH Q1H PRN PRN Reason: Pain (severe 7-10) Ondansetron HCl (Zofran) 4 mg IVPUSH Q4H PRN PRN Reason: Nausea/Vomiting Last Admin: 05/27/19 12:20 Dose: 4 mg Pantoprazole Sodium (Protonix Iv) 40 mg IVPUSH Q24H [facility] Last Admin: 05/28/19 01:13 Dose: 40 mg Sodium Chloride (Saline Flush) 10 ml FLUSH ASDIRECTED PRN PRN Reason: Keep Vein Open Last Admin: 05/27/19 05:35 Dose: 10 ml Discontinued Medications Cefoxitin Sodium (Mefoxin) 2 gm IVPUSH ONETIME ONE Stop: 05/26/19 20:21 Last Admin: 05/26/19 20:33 Dose: 2 gm Sodium Chloride (Normal Saline) 1,000 mls @ 999 mls/hr IV .BOLUS ONE Stop: 05/26/19 18:49 Last Admin: 05/26/19 18:00 Dose: 999 mls/hr Sodium Chloride (Normal Saline) 1,000 mls @ 1,000 mls/hr IV .BOLUS ONE Stop: 05/26/19 20:12 Last Admin: 05/26/19 19:00 Dose: 1,000 mls/hr Iopamidol (Isovue-370 (76%)) 75 ml IV ONETIME ONE Stop: 05/26/19 19:05 Last Admin: 05/26/19 19:20 Dose: 75 ml Morphine Sulfate (Morphine) 4 mg IVPUSH ONETIME ONE Stop: 05/26/19 19:14 Last Admin: 05/26/19 19:29 Dose: 4 mg - Exam Wound/Incisions: Dressing Dry and Intact General: Alert, Oriented Lungs: Clear to Auscultation, Normal Respiratory Effort GI/Abdominal Exam: Soft, Distended (mild), Tender (minimal incisional) - Problem List Review Problem List Initiated/Reviewed/Updated: Yes - My Orders Last 24 Hours: Active Orders 24 hr Category Date Time Status Admission Status [Patient Status] [ADT] Routine ADT 05/28/19 00:10 Active CULTURE ANAEROBIC [RM] Routine Lab 05/27/19 22:40 Received CULTURE BLOOD [BC] Routine Lab 05/27/19 16:02 Received CULTURE ROUTINE + SMEAR [RM] Routine Lab 05/27/19 22:40 Received Hydrocortisone Sod Succinate [Solu-CORTEF] Med 05/27/19 23:45 Active 50 mg IV Q12H Pantoprazole [ProTONIX IV] Med 05/27/19 23:45 Active 40 mg IVPUSH Q24H Medication Orders Hydrocortisone Sodium Succinate (Solu-Cortef) 50 mg IV Q12H [facility] Last Admin: 05/28/19 10:55 Dose: 50 mg Admin: 05/28/19 01:16 Dose: 50 mg Piperacillin Sod/Tazobactam (Sod 3.375 gm/ Sodium Chloride) 50 mls @ 100 mls/ hr IV Q6H [facility] Last Admin: 05/28/19 10:25 Dose: 100 mls/hr Admin: 05/28/19 03:37 Dose: 100 mls/hr Admin: 05/27/19 21:22 Dose: 100 mls/hr Admin: 05/27/19 15:24 Dose: 100 mls/hr Admin: 05/27/19 09:33 Dose: 100 mls/hr Admin: 05/27/19 04:52 Dose: 100 mls/hr Admin: 05/26/19 21:39 Dose: 100 mls/hr Lactated Ringer's (Ringers, Lactated) 1,000 mls @ 150 mls/hr IV ASDIRECTED [facility] Last Admin: 05/28/19 08:07 Dose: 150 mls/hr Infusion: 05/28/19 03:20 Dose: 150 mls/hr Admin: 05/27/19 20:39 Dose: 150 mls/hr Infusion: 05/27/19 19:51 Dose: 150 mls/hr Admin: 05/27/19 13:10 Dose: 150 mls/hr Infusion: 05/27/19 11:30 Dose: 150 mls/hr Admin: 05/27/19 04:49 Dose: 150 mls/hr Infusion: 05/27/19 04:49 Dose: 150 mls/hr Admin: 05/26/19 22:26 Dose: 150 mls/hr Ketorolac Tromethamine (Toradol) 30 mg IVPUSH Q6H PRN PRN Reason: Abdominal Pain Stop: 05/31/19 21:09 Last Admin: 05/28/19 10:22 Dose: 30 mg Admin: 05/28/19 03:34 Dose: 30 mg Admin: 05/27/19 15:28 Dose: 30 mg Admin: 05/27/19 08:01 Dose: 30 mg Admin: 05/26/19 22:19 Dose: 30 mg Morphine Sulfate (Morphine) 2 mg IVPUSH Q1H PRN PRN Reason: Pain Last Admin: 05/27/19 12:20 Dose: 2 mg Admin: 05/27/19 04:46 Dose: 2 mg Admin: 05/26/19 18:16 Dose: 2 mg Morphine Sulfate (Morphine) 2 mg IVPUSH Q1H PRN PRN Reason: Pain (severe 7-10) Ondansetron HCl (Zofran) 4 mg IVPUSH Q4H PRN PRN Reason: Nausea/Vomiting Last Admin: 05/27/19 12:20 Dose: 4 mg Admin: 05/26/19 18:14 Dose: 4 mg Pantoprazole Sodium (Protonix Iv) 40 mg IVPUSH Q24H [facility] Last Admin: 05/28/19 01:13 Dose: 40 mg Sodium Chloride (Saline Flush) 10 ml FLUSH ASDIRECTED PRN PRN Reason: Keep Vein Open Last Admin: 05/27/19 05:35 Dose: 10 ml - Assessment Assessment (Free Text/Narrative):: Crohn's Disease of terminal ileum with peritonitis - Plan Plan (Free Text/Narrative):: Cont IV Antibiotics and IV steroids Await bowel function
[2019-05-28] MEDS: Sodium Chloride 0.9% 10 ML Syringe FLUSH PRN (16:59)
[2019-05-29] MEDS: Piperacillin/Tazobactam 3.375 GM in Sodium Chloride 0.9% 50 ML IV SCH ×4 (04:24→22:10)
[2019-05-29] MEDS: Lactated Ringers 1,000 ML IV SCH ×2 (06:37→17:55)
[2019-05-29] MEDS: Ketorolac 30 MG/ML SDV IVPUSH PRN ×2 (10:23→17:04)
[2019-05-29] MEDS: Sodium Chloride 0.9% 10 ML Syringe FLUSH PRN ×6 (10:29→23:11)
[2019-05-29] MEDS: Hydrocortisone Sodium Succinate 100 MG/2 ML SDV IV SCH ×2 (10:47→23:06)
--- NOTE | 2019-05-29 12:15 | PCM.SURGPN ---
- General Info Date of Service: 05/29/19 POD#: 2 Functional Status: Reports: Pain Controlled, Ambulating, Urinating - Review of Systems General: Reports: No Symptoms Pulmonary: Reports: No Symptoms Gastrointestinal: Reports: No Symptoms, Flatus - Patient Data Vitals - Most Recent: Last Vital Signs Temp 98.8 F 05/29/19 07:30 Pulse 65 05/29/19 07:30 Resp 18 05/29/19 07:30 BP 108/64 05/29/19 07:30 Pulse Ox 97 05/29/19 07:30 Weight - Most Recent: 66.315 kg I&O - Last 24 Hours: Intake & Output 05/28/19 05/29/19 05/29/19 22:59 06:59 14:59 Intake Total 750 1220 445 Output Total 500 450 Balance 250 770 445 Lab Results Last 24 Hrs: Laboratory Results - last 24 hr 05/29/19 05/29/19 Range/Units 06:15 06:15 WBC 15.6 H (4.5-12.0) X10-3/uL RBC 3.46 (3.23-5.20) x10(6)uL Hgb 9.4 L (11.5-15.5) g/dL Hct 29.1 L (30.0-51.3) % MCV 84.1 (80-96) fL MCH 27.2 L (27.7-33.6) pg MCHC 32.3 (32.2-35.4) g/dL RDW 13.9 (11.5-15.5) % Plt Count 267 (125-369) X10(3)uL MPV 11.1 H (7.4-10.4) fL Neut % (Auto) 89.9 H (46-82) % Lymph % (Auto) 5.3 L (13-37) % [place] % (Auto) 4.5 (4-12) % Eos % (Auto) 0 L (1.0-5.0) % Baso % (Auto) 0 (0-2) % Neut # (Auto) 14.0 H (1.6-8.3) # Lymph # (Auto) 0.8 (0.6-5.0) # [place] # (Auto) 0.7 (0.0-1.3) # Eos # (Auto) 0.0 (0.0-0.8) # Baso # (Auto) 0.0 (0.0-0.2) # Sodium 140 (135-145) mmol/L Potassium 3.5 (3.5-5.3) mmol/L Chloride 107 (100-110) mmol/L Carbon Dioxide 28 (21-32) mmol/L BUN 12 (7-18) mg/dL Creatinine 0.6 (0.55-1.02) mg/dL Est Cr Clr Drug Dosing 131.85 mL/min Estimated GFR (MDRD) > 60 (>60) BUN/Creatinine Ratio 20.0 (9-20) Glucose 113 (80-116) mg/dL Calcium 7.8 L (8.6-10.2) mg/dL Total Bilirubin 0.3 (0.1-1.3) mg/dL AST 12 (5-25) IU/L ALT 16 D (12-36) U/L Alkaline Phosphatase 62 (56-112) IU/L Total Protein 5.4 L (6.0-8.0) g/dL Albumin 2.0 L (3.5-5.2) g/dL Globulin 3.4 g/dL Albumin/Globulin Ratio 0.6 [place] Results Last 24 Hrs: Microbiology 05/27/19 16:02 Aerobic Blood Culture - Preliminary Blood NO GROWTH AFTER 1 DAY Anaerobic Blood Culture - Preliminary NO GROWTH AFTER 1 DAY Med Orders - Current: Current Medications Hydrocortisone Sodium Succinate (Solu-Cortef) 50 mg IV Q12H [facility] Last Admin: 05/29/19 10:47 Dose: 50 mg Piperacillin Sod/Tazobactam (Sod 3.375 gm/ Sodium Chloride) 50 mls @ 100 mls/ hr IV Q6H [facility] Last Admin: 05/29/19 10:06 Dose: 100 mls/hr Potassium Chloride 20 meq/ (Lactated Ringer's) 1,010 mls @ 150 mls/hr IV Q7H [facility] Last Admin: 05/29/19 10:10 Dose: 150 mls/hr Ketorolac Tromethamine (Toradol) 30 mg IVPUSH Q6H PRN PRN Reason: Abdominal Pain Stop: 05/31/19 21:09 Last Admin: 05/29/19 10:23 Dose: 30 mg Morphine Sulfate (Morphine) 2 mg IVPUSH Q1H PRN PRN Reason: Pain Last Admin: 05/27/19 12:20 Dose: 2 mg Ondansetron HCl (Zofran) 4 mg IVPUSH Q4H PRN PRN Reason: Nausea/Vomiting Last Admin: 05/27/19 12:20 Dose: 4 mg Pantoprazole Sodium (Protonix Iv) 40 mg IVPUSH Q24H [facility] Last Admin: 05/28/19 23:18 Dose: 40 mg Sodium Chloride (Saline Flush) 10 ml FLUSH ASDIRECTED PRN PRN Reason: Keep Vein Open Last Admin: 05/29/19 10:29 Dose: 10 ml Discontinued Medications Cefoxitin Sodium (Mefoxin) 2 gm IVPUSH ONETIME ONE Stop: 05/26/19 20:21 Last Admin: 05/26/19 20:33 Dose: 2 gm Sodium Chloride (Normal Saline) 1,000 mls @ 999 mls/hr IV .BOLUS ONE Stop: 05/26/19 18:49 Last Admin: 05/26/19 18:00 Dose: 999 mls/hr Sodium Chloride (Normal Saline) 1,000 mls @ 1,000 mls/hr IV .BOLUS ONE Stop: 05/26/19 20:12 Last Admin: 05/26/19 19:00 Dose: 1,000 mls/hr Lactated Ringer's (Ringers, Lactated) 1,000 mls @ 150 mls/hr IV ASDIRECTED [facility] Last Admin: 05/29/19 06:37 Dose: 150 mls/hr Iopamidol (Isovue-370 (76%)) 75 ml IV ONETIME ONE Stop: 05/26/19 19:05 Last Admin: 05/26/19 19:20 Dose: 75 ml Morphine Sulfate (Morphine) 4 mg IVPUSH ONETIME ONE Stop: 05/26/19 19:14 Last Admin: 05/26/19 19:29 Dose: 4 mg Morphine Sulfate (Morphine) 2 mg IVPUSH Q1H PRN PRN Reason: Pain (severe 7-10) - Exam Wound/Incisions: Healing Well General: Alert, Oriented GI/Abdominal Exam: Normal Bowel Sounds, Soft, Non-Tender, Distended (less than yesterday) - Problem List Review Problem List Initiated/Reviewed/Updated: Yes - My Orders Last 24 Hours: Active Orders 24 hr Category Date Time Status Clear Liquid Diet [DIET] Diet 05/29/19 Dinner Ordered CBC WITH AUTO DIFF [HEME] Routine Lab 05/31/19 07:00 Ordered Potassium Chloride 20 meq Med 05/29/19 09:15 Active Lactated Ringers [Ringers, Lactated] 1,000 ml IV Q7H Medication Orders Hydrocortisone Sodium Succinate (Solu-Cortef) 50 mg IV Q12H [facility] Last Admin: 05/29/19 10:47 Dose: 50 mg Admin: 05/28/19 23:13 Dose: 50 mg Admin: 05/28/19 10:55 Dose: 50 mg Admin: 05/28/19 01:16 Dose: 50 mg Piperacillin Sod/Tazobactam (Sod 3.375 gm/ Sodium Chloride) 50 mls @ 100 mls/ hr IV Q6H [facility] Last Admin: 05/29/19 10:06 Dose: 100 mls/hr Admin: 05/29/19 04:24 Dose: 100 mls/hr Admin: 05/28/19 21:41 Dose: 100 mls/hr Admin: 05/28/19 16:22 Dose: 100 mls/hr Admin: 05/28/19 10:25 Dose: 100 mls/hr Admin: 05/28/19 03:37 Dose: 100 mls/hr Admin: 05/27/19 21:22 Dose: 100 mls/hr Admin: 05/27/19 15:24 Dose: 100 mls/hr Admin: 05/27/19 09:33 Dose: 100 mls/hr Admin: 05/27/19 04:52 Dose: 100 mls/hr Admin: 05/26/19 21:39 Dose: 100 mls/hr Potassium Chloride 20 meq/ (Lactated Ringer's) 1,010 mls @ 150 mls/hr IV Q7H [facility] Last Admin: 05/29/19 10:10 Dose: 150 mls/hr Ketorolac Tromethamine (Toradol) 30 mg IVPUSH Q6H PRN PRN Reason: Abdominal Pain Stop: 05/31/19 21:09 Last Admin: 05/29/19 10:23 Dose: 30 mg Admin: 05/28/19 23:15 Dose: 30 mg Admin: 05/28/19 16:56 Dose: 30 mg Admin: 05/28/19 10:22 Dose: 30 mg Admin: 05/28/19 03:34 Dose: 30 mg Admin: 05/27/19 15:28 Dose: 30 mg Admin: 05/27/19 08:01 Dose: 30 mg Admin: 05/26/19 22:19 Dose: 30 mg Morphine Sulfate (Morphine) 2 mg IVPUSH Q1H PRN PRN Reason: Pain Last Admin: 05/27/19 12:20 Dose: 2 mg Admin: 05/27/19 04:46 Dose: 2 mg Admin: 05/26/19 18:16 Dose: 2 mg Ondansetron HCl (Zofran) 4 mg IVPUSH Q4H PRN PRN Reason: Nausea/Vomiting Last Admin: 05/27/19 12:20 Dose: 4 mg Admin: 05/26/19 18:14 Dose: 4 mg Pantoprazole Sodium (Protonix Iv) 40 mg IVPUSH Q24H [facility] Last Admin: 05/28/19 23:18 Dose: 40 mg Admin: 05/28/19 01:13 Dose: 40 mg Sodium Chloride (Saline Flush) 10 ml FLUSH ASDIRECTED PRN PRN Reason: Keep Vein Open Last Admin: 05/29/19 10:29 Dose: 10 ml Admin: 05/28/19 16:59 Dose: 10 ml Admin: 05/27/19 05:35 Dose: 10 ml - Assessment Assessment (Free Text/Narrative):: Doing well WBC better - Plan Plan (Free Text/Narrative):: Start po slowly Cont IV antibiotics and steroids
[2019-05-29] MEDS: Potassium Chloride 100 ML IV SCH (17:54)
[2019-05-29] MEDS: Pantoprazole 40 MG Vial IVPUSH SCH (23:09)
[2019-05-30] MEDS: Potassium Chloride 100 ML IV SCH ×3 (00:30→15:35)
[2019-05-30] MEDS: Lactated Ringers 1,000 ML IV SCH ×3 (00:32→17:46)
[2019-05-30] MEDS: Piperacillin/Tazobactam 3.375 GM in Sodium Chloride 0.9% 50 ML IV SCH ×4 (03:43→21:00)
[2019-05-30] MEDS: Sodium Chloride 0.9% 10 ML Syringe FLUSH PRN ×6 (04:36→21:10)
[2019-05-30] MEDS: Hydrocortisone Sodium Succinate 100 MG/2 ML SDV IV SCH ×2 (09:57→20:51)
--- NOTE | 2019-05-30 12:11 | PCM.SURGPN ---
- General Info POD#: 3 Functional Status: Reports: Pain Controlled, Tolerating Diet, Ambulating, Urinating - Review of Systems General: Reports: No Symptoms. Denies: Fever Gastrointestinal: Reports: No Symptoms, Abdominal Pain (mild incisional), Flatus (and BM). Denies: Nausea - Patient Data Vitals - Most Recent: Last Vital Signs Temp 98.8 F 05/30/19 07:30 Pulse 72 05/30/19 07:30 Resp 16 05/30/19 07:30 BP 110/66 05/30/19 07:30 Pulse Ox 97 05/30/19 07:30 Weight - Most Recent: 66.315 kg I&O - Last 24 Hours: Intake & Output 05/29/19 05/30/19 05/30/19 22:59 06:59 14:59 Intake Total 549 85 2926 Output Total 200 200 Balance 673 -144 1305 [place] Results Last 24 Hrs: Microbiology 05/27/19 16:02 Aerobic Blood Culture - Preliminary Blood NO GROWTH AFTER 2 DAYS Anaerobic Blood Culture - Preliminary NO GROWTH AFTER 2 DAYS Med Orders - Current: Current Medications Hydrocortisone Sodium Succinate (Solu-Cortef) 50 mg IV Q12H [facility] Last Admin: 05/30/19 09:57 Dose: 50 mg Piperacillin Sod/Tazobactam (Sod 3.375 gm/ Sodium Chloride) 50 mls @ 100 mls/ hr IV Q6H [facility] Last Admin: 05/30/19 09:58 Dose: 100 mls/hr Lactated Ringer's (Ringers, Lactated) 1,000 mls @ 150 mls/hr IV ASDIRECTED [facility] Last Admin: 05/30/19 07:46 Dose: 150 mls/hr Potassium Chloride (Kcl 20 Meq In Water 100 Ml) 100 mls @ 15 mls/hr IV Q7H [facility] Last Admin: 05/30/19 07:46 Dose: 15 mls/hr Ketorolac Tromethamine (Toradol) 30 mg IVPUSH Q6H PRN PRN Reason: Abdominal Pain Stop: 05/31/19 21:09 Last Admin: 05/29/19 17:04 Dose: 30 mg Morphine Sulfate (Morphine) 2 mg IVPUSH Q1H PRN PRN Reason: Pain Last Admin: 05/27/19 12:20 Dose: 2 mg Ondansetron HCl (Zofran) 4 mg IVPUSH Q4H PRN PRN Reason: Nausea/Vomiting Last Admin: 05/27/19 12:20 Dose: 4 mg Pantoprazole Sodium (Protonix Iv) 40 mg IVPUSH Q24H [facility] Sodium Chloride (Saline Flush) 10 ml FLUSH ASDIRECTED PRN PRN Reason: Keep Vein Open Last Admin: 05/30/19 09:58 Dose: 10 ml Discontinued Medications Cefoxitin Sodium (Mefoxin) 2 gm IVPUSH ONETIME ONE Stop: 05/26/19 20:21 Last Admin: 05/26/19 20:33 Dose: 2 gm Hydrocortisone Sodium Succinate (Solu-Cortef) 50 mg IV Q12H [facility] Last Admin: 05/29/19 23:06 Dose: 50 mg Sodium Chloride (Normal Saline) 1,000 mls @ 999 mls/hr IV .BOLUS ONE Stop: 05/26/19 18:49 Last Admin: 05/26/19 18:00 Dose: 999 mls/hr Sodium Chloride (Normal Saline) 1,000 mls @ 1,000 mls/hr IV .BOLUS ONE Stop: 05/26/19 20:12 Last Admin: 05/26/19 19:00 Dose: 1,000 mls/hr Lactated Ringer's (Ringers, Lactated) 1,000 mls @ 150 mls/hr IV ASDIRECTED [facility] Last Admin: 05/29/19 06:37 Dose: 150 mls/hr Potassium Chloride 20 meq/ (Lactated Ringer's) 1,010 mls @ 150 mls/hr IV Q7H [facility] Stop: 05/29/19 16:59 Last Admin: 05/29/19 18:20 Dose: Not Given Iopamidol (Isovue-370 (76%)) 75 ml IV ONETIME ONE Stop: 05/26/19 19:05 Last Admin: 05/26/19 19:20 Dose: 75 ml Morphine Sulfate (Morphine) 4 mg IVPUSH ONETIME ONE Stop: 05/26/19 19:14 Last Admin: 05/26/19 19:29 Dose: 4 mg Morphine Sulfate (Morphine) 2 mg IVPUSH Q1H PRN PRN Reason: Pain (severe 7-10) Pantoprazole Sodium (Protonix Iv) 40 mg IVPUSH Q24H [facility] Last Admin: 05/29/19 23:09 Dose: 40 mg - Exam Wound/Incisions: Healing Well GI/Abdominal Exam: Soft, Non-Tender - Problem List Review Problem List Initiated/Reviewed/Updated: Yes - My Orders Last 24 Hours: Active Orders 24 hr Category Date Time Status Clear Liquid Diet [DIET] Diet 05/29/19 Dinner Active Soft Diet [DIET] Diet 05/30/19 Lunch Active CBC WITH AUTO DIFF [HEME] Routine Lab 05/31/19 07:00 Ordered Hydrocortisone Sod Succinate [Solu-CORTEF] Med 05/30/19 09:00 Active 50 mg IV Q12H Lactated Ringers [Ringers, Lactated] 1,000 ml Med 05/29/19 17:00 Active IV ASDIRECTED Pantoprazole [ProTONIX IV] Med 05/30/19 21:00 Active 40 mg IVPUSH Q24H Potassium Chloride [KCL 20 MEQ in Water 100 ML] 100 ml Med 05/29/19 17:00 Active IV Q7H Medication Orders Hydrocortisone Sodium Succinate (Solu-Cortef) 50 mg IV Q12H [facility] Last Admin: 05/30/19 09:57 Dose: 50 mg Piperacillin Sod/Tazobactam (Sod 3.375 gm/ Sodium Chloride) 50 mls @ 100 mls/ hr IV Q6H [facility] Last Admin: 05/30/19 09:58 Dose: 100 mls/hr Admin: 05/30/19 03:43 Dose: 100 mls/hr Admin: 05/29/19 22:10 Dose: 100 mls/hr Admin: 05/29/19 15:52 Dose: 100 mls/hr Admin: 05/29/19 10:06 Dose: 100 mls/hr Admin: 05/29/19 04:24 Dose: 100 mls/hr Admin: 05/28/19 21:41 Dose: 100 mls/hr Admin: 05/28/19 16:22 Dose: 100 mls/hr Admin: 05/28/19 10:25 Dose: 100 mls/hr Admin: 05/28/19 03:37 Dose: 100 mls/hr Admin: 05/27/19 21:22 Dose: 100 mls/hr Admin: 05/27/19 15:24 Dose: 100 mls/hr Admin: 05/27/19 09:33 Dose: 100 mls/hr Admin: 05/27/19 04:52 Dose: 100 mls/hr Admin: 05/26/19 21:39 Dose: 100 mls/hr Lactated Ringer's (Ringers, Lactated) 1,000 mls @ 150 mls/hr IV ASDIRECTED [facility] Last Admin: 05/30/19 07:46 Dose: 150 mls/hr Infusion: 05/30/19 07:13 Dose: 150 mls/hr Admin: 05/30/19 00:32 Dose: 150 mls/hr Infusion: 05/30/19 00:32 Dose: 150 mls/hr Admin: 05/29/19 17:55 Dose: 150 mls/hr Potassium Chloride (Kcl 20 Meq In Water 100 Ml) 100 mls @ 15 mls/hr IV Q7H [facility] Last Admin: 05/30/19 07:46 Dose: 15 mls/hr Infusion: 05/30/19 07:11 Dose: 15 mls/hr Admin: 05/30/19 00:30 Dose: 15 mls/hr Infusion: 05/30/19 00:30 Dose: 15 mls/hr Admin: 05/29/19 17:54 Dose: 15 mls/hr Ketorolac Tromethamine (Toradol) 30 mg IVPUSH Q6H PRN PRN Reason: Abdominal Pain Stop: 05/31/19 21:09 Last Admin: 05/29/19 17:04 Dose: 30 mg Admin: 05/29/19 10:23 Dose: 30 mg Admin: 05/28/19 23:15 Dose: 30 mg Admin: 05/28/19 16:56 Dose: 30 mg Admin: 05/28/19 10:22 Dose: 30 mg Admin: 05/28/19 03:34 Dose: 30 mg Admin: 05/27/19 15:28 Dose: 30 mg Admin: 05/27/19 08:01 Dose: 30 mg Admin: 05/26/19 22:19 Dose: 30 mg Morphine Sulfate (Morphine) 2 mg IVPUSH Q1H PRN PRN Reason: Pain Last Admin: 05/27/19 12:20 Dose: 2 mg Admin: 05/27/19 04:46 Dose: 2 mg Admin: 05/26/19 18:16 Dose: 2 mg Ondansetron HCl (Zofran) 4 mg IVPUSH Q4H PRN PRN Reason: Nausea/Vomiting Last Admin: 05/27/19 12:20 Dose: 4 mg Admin: 05/26/19 18:14 Dose: 4 mg Pantoprazole Sodium (Protonix Iv) 40 mg IVPUSH Q24H [facility] Sodium Chloride (Saline Flush) 10 ml FLUSH ASDIRECTED PRN PRN Reason: Keep Vein Open Last Admin: 05/30/19 09:58 Dose: 10 ml Admin: 05/30/19 04:36 Dose: 10 ml Admin: 05/29/19 23:11 Dose: 10 ml Admin: 05/29/19 23:10 Dose: 10 ml Admin: 05/29/19 23:09 Dose: 10 ml Admin: 05/29/19 23:05 Dose: 10 ml Admin: 05/29/19 15:53 Dose: 10 ml Admin: 05/29/19 10:29 Dose: 10 ml Admin: 05/28/19 16:59 Dose: 10 ml Admin: 05/27/19 05:35 Dose: 10 ml - Assessment Assessment (Free Text/Narrative):: Ding well - Plan Plan (Free Text/Narrative):: Advance Diet Recheck WBC in am Plan discharge tomorrow
[2019-05-30] MEDS: Ketorolac 30 MG/ML SDV IVPUSH PRN (13:45)
[2019-05-30] MEDS ORDERED: Pantoprazole 40 MG Vial IVPUSH SCH (21:00)
[2019-05-31] MEDS: Potassium Chloride 100 ML IV SCH ×3 (02:46→10:53)
[2019-05-31] MEDS: Lactated Ringers 1,000 ML IV SCH (02:59)
[2019-05-31] MEDS: Piperacillin/Tazobactam 3.375 GM in Sodium Chloride 0.9% 50 ML IV SCH ×2 (03:00→10:35)
[2019-05-31] MEDS: Sodium Chloride 0.9% 10 ML Syringe FLUSH PRN (03:10)
[2019-05-31] MEDS: Hydrocortisone Sodium Succinate 100 MG/2 ML SDV IV SCH (08:52)
--- NOTE | 2019-05-31 10:32 | PCM.SURGPN ---
- General Info Date of Service: 05/31/19 POD#: 4 Functional Status: Reports: Pain Controlled, Tolerating Diet, Ambulating, Urinating - Review of Systems General: Reports: No Symptoms Gastrointestinal: Reports: No Symptoms Genitourinary: Reports: No Symptoms - Patient Data Vitals - Most Recent: Last Vital Signs Temp 98.8 F 05/31/19 03:30 Pulse 74 05/31/19 03:30 Resp 18 05/31/19 03:30 BP 112/70 05/31/19 03:30 Pulse Ox 96 05/31/19 03:30 Weight - Most Recent: 66.315 kg I&O - Last 24 Hours: Intake & Output 05/30/19 05/31/19 05/31/19 22:59 06:59 14:59 Intake Total 647 1012 Output Total 250 300 Balance 397 712 Lab Results Last 24 Hrs: Laboratory Results - last 24 hr 05/31/19 Range/Units 06:10 WBC 8.4 (4.5-12.0) X10-3/uL RBC 3.27 (3.23-5.20) x10(6)uL Hgb 9.0 L (11.5-15.5) g/dL Hct 28.0 L (30.0-51.3) % MCV 85.6 (80-96) fL MCH 27.5 L (27.7-33.6) pg MCHC 32.1 L (32.2-35.4) g/dL RDW 14.6 (11.5-15.5) % Plt Count 348 (125-369) X10(3)uL MPV 10.6 H (7.4-10.4) fL Neut % (Auto) 75.2 (46-82) % Lymph % (Auto) 15.6 (13-37) % [place] % (Auto) 8.9 (4-12) % Eos % (Auto) 0 L (1.0-5.0) % Baso % (Auto) 0 (0-2) % [place] Results Last 24 Hrs: Microbiology 05/27/19 22:40 Gram Stain - Final Abdominal Fluid - Aspirate Routine Culture - Final 05/27/19 16:02 Aerobic Blood Culture - Preliminary Blood NO GROWTH AFTER 3 DAYS Anaerobic Blood Culture - Preliminary NO GROWTH AFTER 3 DAYS Med Orders - Current: Current Medications Hydrocortisone Sodium Succinate (Solu-Cortef) 50 mg IV Q12H [facility] Last Admin: 05/31/19 08:52 Dose: 50 mg Piperacillin Sod/Tazobactam (Sod 3.375 gm/ Sodium Chloride) 50 mls @ 100 mls/ hr IV Q6H [facility] Last Admin: 05/31/19 03:00 Dose: 100 mls/hr Lactated Ringer's (Ringers, Lactated) 1,000 mls @ 100 mls/hr IV ASDIRECTED [facility] Last Admin: 05/31/19 02:59 Dose: 100 mls/hr Potassium Chloride (Kcl 20 Meq In Water 100 Ml) 100 mls @ 10 mls/hr IV Q7H [facility] Last Admin: 05/31/19 04:16 Dose: Not Given Ketorolac Tromethamine (Toradol) 30 mg IVPUSH Q6H PRN PRN Reason: Abdominal Pain Stop: 05/31/19 21:09 Last Admin: 05/30/19 13:45 Dose: 30 mg Morphine Sulfate (Morphine) 2 mg IVPUSH Q1H PRN PRN Reason: Pain Last Admin: 05/27/19 12:20 Dose: 2 mg Ondansetron HCl (Zofran) 4 mg IVPUSH Q4H PRN PRN Reason: Nausea/Vomiting Last Admin: 05/27/19 12:20 Dose: 4 mg Pantoprazole Sodium (Protonix Iv) 40 mg IVPUSH Q24H [facility] Last Admin: 05/30/19 20:51 Dose: 40 mg Sodium Chloride (Saline Flush) 10 ml FLUSH ASDIRECTED PRN PRN Reason: Keep Vein Open Last Admin: 05/31/19 03:10 Dose: 10 ml Discontinued Medications Cefoxitin Sodium (Mefoxin) 2 gm IVPUSH ONETIME ONE Stop: 05/26/19 20:21 Last Admin: 05/26/19 20:33 Dose: 2 gm Hydrocortisone Sodium Succinate (Solu-Cortef) 50 mg IV Q12H [facility] Last Admin: 05/29/19 23:06 Dose: 50 mg Sodium Chloride (Normal Saline) 1,000 mls @ 999 mls/hr IV .BOLUS ONE Stop: 05/26/19 18:49 Last Admin: 05/26/19 18:00 Dose: 999 mls/hr Sodium Chloride (Normal Saline) 1,000 mls @ 1,000 mls/hr IV .BOLUS ONE Stop: 05/26/19 20:12 Last Admin: 05/26/19 19:00 Dose: 1,000 mls/hr Lactated Ringer's (Ringers, Lactated) 1,000 mls @ 150 mls/hr IV ASDIRECTED [facility] Last Admin: 05/29/19 06:37 Dose: 150 mls/hr Potassium Chloride 20 meq/ (Lactated Ringer's) 1,010 mls @ 150 mls/hr IV Q7H [facility] Stop: 05/29/19 16:59 Last Admin: 05/29/19 18:20 Dose: Not Given Iopamidol (Isovue-370 (76%)) 75 ml IV ONETIME ONE Stop: 05/26/19 19:05 Last Admin: 05/26/19 19:20 Dose: 75 ml Morphine Sulfate (Morphine) 4 mg IVPUSH ONETIME ONE Stop: 05/26/19 19:14 Last Admin: 05/26/19 19:29 Dose: 4 mg Morphine Sulfate (Morphine) 2 mg IVPUSH Q1H PRN PRN Reason: Pain (severe 7-10) Pantoprazole Sodium (Protonix Iv) 40 mg IVPUSH Q24H [facility] Last Admin: 05/29/19 23:09 Dose: 40 mg - Exam Wound/Incisions: Healing Well, Dressing Dry and Intact GI/Abdominal Exam: Soft, Non-Tender - Problem List Review Problem List Initiated/Reviewed/Updated: Yes - My Orders Last 24 Hours: Active Orders 24 hr Category Date Time Status Ready for Discharge [RC] PER UNIT ROUTINE Care 05/31/19 10:29 Ordered Soft Diet [DIET] Diet 05/30/19 Lunch Active Pantoprazole [ProTONIX IV] Med 05/30/19 21:00 Active 40 mg IVPUSH Q24H Medication Orders Hydrocortisone Sodium Succinate (Solu-Cortef) 50 mg IV Q12H [facility] Last Admin: 05/31/19 08:52 Dose: 50 mg Admin: 05/30/19 20:51 Dose: 50 mg Admin: 05/30/19 09:57 Dose: 50 mg Piperacillin Sod/Tazobactam (Sod 3.375 gm/ Sodium Chloride) 50 mls @ 100 mls/ hr IV Q6H [facility] Last Admin: 05/31/19 03:00 Dose: 100 mls/hr Admin: 05/30/19 21:00 Dose: 100 mls/hr Admin: 05/30/19 16:23 Dose: 100 mls/hr Admin: 05/30/19 09:58 Dose: 100 mls/hr Admin: 05/30/19 03:43 Dose: 100 mls/hr Admin: 05/29/19 22:10 Dose: 100 mls/hr Admin: 05/29/19 15:52 Dose: 100 mls/hr Admin: 05/29/19 10:06 Dose: 100 mls/hr Admin: 05/29/19 04:24 Dose: 100 mls/hr Admin: 05/28/19 21:41 Dose: 100 mls/hr Admin: 05/28/19 16:22 Dose: 100 mls/hr Admin: 05/28/19 10:25 Dose: 100 mls/hr Admin: 05/28/19 03:37 Dose: 100 mls/hr Admin: 05/27/19 21:22 Dose: 100 mls/hr Admin: 05/27/19 15:24 Dose: 100 mls/hr Admin: 05/27/19 09:33 Dose: 100 mls/hr Admin: 05/27/19 04:52 Dose: 100 mls/hr Admin: 05/26/19 21:39 Dose: 100 mls/hr Lactated Ringer's (Ringers, Lactated) 1,000 mls @ 100 mls/hr IV ASDIRECTED [facility] Admin: 05/31/19 02:59 Dose: 100 mls/hr Infusion: 05/31/19 02:59 Dose: 100 mls/hr Admin: 05/30/19 17:46 Dose: 100 mls/hr Infusion: 05/30/19 15:24 Dose: 100 mls/hr Infusion: 05/30/19 12:30 Dose: 100 mls/hr Admin: 05/30/19 07:46 Dose: 150 mls/hr Infusion: 05/30/19 07:13 Dose: 150 mls/hr Admin: 05/30/19 00:32 Dose: 150 mls/hr Infusion: 05/30/19 00:32 Dose: 150 mls/hr Admin: 05/29/19 17:55 Dose: 150 mls/hr Potassium Chloride (Kcl 20 Meq In Water 100 Ml) 100 mls @ 10 mls/hr IV Q7H [facility] Last Admin: 05/31/19 04:16 Dose: Admin: 05/31/19 02:46 Dose: 10 mls/hr Infusion: 05/31/19 01:12 Dose: 10 mls/hr Infusion: 05/30/19 16:24 Dose: 10 mls/hr Admin: 05/30/19 15:35 Dose: 15 mls/hr Infusion: 05/30/19 14:27 Dose: 15 mls/hr Admin: 05/30/19 07:46 Dose: 15 mls/hr Infusion: 05/30/19 07:11 Dose: 15 mls/hr Admin: 05/30/19 00:30 Dose: 15 mls/hr Infusion: 05/30/19 00:30 Dose: 15 mls/hr Admin: 05/29/19 17:54 Dose: 15 mls/hr Ketorolac Tromethamine (Toradol) 30 mg IVPUSH Q6H PRN PRN Reason: Abdominal Pain Stop: 05/31/19 21:09 Last Admin: 05/30/19 13:45 Dose: 30 mg Admin: 05/29/19 17:04 Dose: 30 mg Admin: 05/29/19 10:23 Dose: 30 mg Admin: 05/28/19 23:15 Dose: 30 mg Admin: 05/28/19 16:56 Dose: 30 mg Admin: 05/28/19 10:22 Dose: 30 mg Admin: 05/28/19 03:34 Dose: 30 mg Admin: 05/27/19 15:28 Dose: 30 mg Admin: 05/27/19 08:01 Dose: 30 mg Admin: 05/26/19 22:19 Dose: 30 mg Morphine Sulfate (Morphine) 2 mg IVPUSH Q1H PRN PRN Reason: Pain Last Admin: 05/27/19 12:20 Dose: 2 mg Admin: 05/27/19 04:46 Dose: 2 mg Admin: 05/26/19 18:16 Dose: 2 mg Ondansetron HCl (Zofran) 4 mg IVPUSH Q4H PRN PRN Reason: Nausea/Vomiting Last Admin: 05/27/19 12:20 Dose: 4 mg Admin: 05/26/19 18:14 Dose: 4 mg Pantoprazole Sodium (Protonix Iv) 40 mg IVPUSH Q24H MAYKEL Last Admin: 05/30/19 20:51 Dose: 40 mg Sodium Chloride (Saline Flush) 10 ml FLUSH ASDIRECTED PRN PRN Reason: Keep Vein Open Last Admin: 05/31/19 03:10 Dose: 10 ml Admin: 05/30/19 21:10 Dose: 10 ml Admin: 05/30/19 20:54 Dose: 10 ml Admin: 05/30/19 17:08 Dose: 10 ml Admin: 05/30/19 16:23 Dose: 10 ml Admin: 05/30/19 09:58 Dose: 10 ml Admin: 05/30/19 04:36 Dose: 10 ml Admin: 05/29/19 23:11 Dose: 10 ml Admin: 05/29/19 23:10 Dose: 10 ml Admin: 05/29/19 23:09 Dose: 10 ml Admin: 05/29/19 23:05 Dose: 10 ml Admin: 05/29/19 15:53 Dose: 10 ml Admin: 05/29/19 10:29 Dose: 10 ml Admin: 05/28/19 16:59 Dose: 10 ml Admin: 05/27/19 05:35 Dose: 10 ml - Assessment Assessment (Free Text/Narrative):: Doing well, ready for discharge - Plan Plan (Free Text/Narrative):: Discharge to home All cultures negative so will not send home on antibiotics Continue with Prednisone at home
--- NOTE | 2019-05-31 10:41 | PCM.DCSUM1 ---
Discharge Summary - Hospital Course Brief History: Presented to the ER on 05/26/19 with nausea, vomitting andsevere abd pain. See H&P for details - Discharge Data Discharge Date: 05/31/19 Discharge Disposition: Home, Self-Care 01 Condition: Stable - Patient Summary/Data Operative Procedure(s) Performed: Expl Yeny, appy Consults: Consultations 05/26/19 20:41 Consult to Physician [CONS] Urgent Consulting Provider: Osmany Shoemaker Courtesy Call Completed to Consulting Physician: Yes Reason for Consult: abd pain Recommended Follow-up Testing/Procedures: Will set up GI referral for Crohn's Disease Hospital Course: Patient was admitted on IV Zosyn and initially improved for 24 hours but then started to have fevers to 103 and remained tachycardic. Underwent surgery at that time with findings of peritonitis and inflammation of terminal ileum. Was started on IV steroids and antibiotics continued until all cultures returned negative and WBC was normal. At this time she is feeling good and bowels are working. Incision healing well. I did not start her on Lovenox since her Hbg was dropping daily for unknown reason. - Patient Instructions Diet: Usual Diet as Tolerated Activity: No Lifting Over 20 Pounds (for 4 weeks) Showering/Bathing: February Shower Wound/Incision Care: Keep Operative Site/Wound Site Clean and Dry Notify Provider of: Fever, Increased Pain - Discharge Plan *PRESCRIPTION DRUG MONITORING PROGRAM REVIEWED*: Not Applicable *COPY OF PRESCRIPTION DRUG MONITORING REPORT IN PATIENT PANCHITO: Not Applicable Home Medications: Home Meds NK [No Known Home Meds] 05/26/19 [History] Patient Handouts: Peritonitis, Crohn's Disease Referrals: PCP,Unknown [Ordering Only Provider] - (Call [facility] Mon am to make f/u appointment with Dr Shoemaker next or Sat) - Discharge Summary/Plan Comment DC Time >30 min.: Yes - Patient Data Vitals - Most Recent: Last Vital Signs Temp 98.8 F 05/31/19 03:30 Pulse 74 05/31/19 03:30 Resp 18 05/31/19 03:30 BP 112/70 05/31/19 03:30 Pulse Ox 96 05/31/19 03:30 Weight - Most Recent: 66.315 kg I&O - Last 24 hours: Intake & Output 05/30/19 05/31/19 05/31/19 22:59 06:59 14:59 Intake Total 647 1012 Output Total 250 300 Balance 397 712 Lab Results - Last 24 hrs: Laboratory Results - last 24 hr 05/31/19 Range/Units 06:10 WBC 8.4 (4.5-12.0) X10-3/uL RBC 3.27 (3.23-5.20) x10(6)uL Hgb 9.0 L (11.5-15.5) g/dL Hct 28.0 L (30.0-51.3) % MCV 85.6 (80-96) fL MCH 27.5 L (27.7-33.6) pg MCHC 32.1 L (32.2-35.4) g/dL RDW 14.6 (11.5-15.5) % Plt Count 348 (125-369) X10(3)uL MPV 10.6 H (7.4-10.4) fL Neut % (Auto) 75.2 (46-82) % Lymph % (Auto) 15.6 (13-37) % [place] % (Auto) 8.9 (4-12) % Eos % (Auto) 0 L (1.0-5.0) % Baso % (Auto) 0 (0-2) % HARRY Results - Last 24 hrs: Microbiology 05/27/19 22:40 Gram Stain - Final Abdominal Fluid - Aspirate Routine Culture - Final 05/27/19 16:02 Aerobic Blood Culture - Preliminary Blood NO GROWTH AFTER 3 DAYS Anaerobic Blood Culture - Preliminary NO GROWTH AFTER 3 DAYS Med Orders - Current: Current Medications Hydrocortisone Sodium Succinate (Solu-Cortef) 50 mg IV Q12H [facility] Last Admin: 05/31/19 08:52 Dose: 50 mg Piperacillin Sod/Tazobactam (Sod 3.375 gm/ Sodium Chloride) 50 mls @ 100 mls/ hr IV Q6H [facility] Last Admin: 05/31/19 03:00 Dose: 100 mls/hr Lactated Ringer's (Ringers, Lactated) 1,000 mls @ 100 mls/hr IV ASDIRECTED [facility] Last Admin: 05/31/19 02:59 Dose: 100 mls/hr Potassium Chloride (Kcl 20 Meq In Water 100 Ml) 100 mls @ 10 mls/hr IV Q7H [facility] Last Admin: 05/31/19 04:16 Dose: Not Given Ketorolac Tromethamine (Toradol) 30 mg IVPUSH Q6H PRN PRN Reason: Abdominal Pain Stop: 05/31/19 21:09 Last Admin: 05/30/19 13:45 Dose: 30 mg Morphine Sulfate (Morphine) 2 mg IVPUSH Q1H PRN PRN Reason: Pain Last Admin: 05/27/19 12:20 Dose: 2 mg Ondansetron HCl (Zofran) 4 mg IVPUSH Q4H PRN PRN Reason: Nausea/Vomiting Last Admin: 05/27/19 12:20 Dose: 4 mg Pantoprazole Sodium (Protonix Iv) 40 mg IVPUSH Q24H MAYKEL Last Admin: 05/30/19 20:51 Dose: 40 mg Sodium Chloride (Saline Flush) 10 ml FLUSH ASDIRECTED PRN PRN Reason: Keep Vein Open Last Admin: 05/31/19 03:10 Dose: 10 ml Discontinued Medications Cefoxitin Sodium (Mefoxin) 2 gm IVPUSH ONETIME ONE Stop: 05/26/19 20:21 Last Admin: 05/26/19 20:33 Dose: 2 gm Hydrocortisone Sodium Succinate (Solu-Cortef) 50 mg IV Q12H [facility] Last Admin: 05/29/19 23:06 Dose: 50 mg Sodium Chloride (Normal Saline) 1,000 mls @ 999 mls/hr IV .BOLUS ONE Stop: 05/26/19 18:49 Last Admin: 05/26/19 18:00 Dose: 999 mls/hr Sodium Chloride (Normal Saline) 1,000 mls @ 1,000 mls/hr IV .BOLUS ONE Stop: 05/26/19 20:12 Last Admin: 05/26/19 19:00 Dose: 1,000 mls/hr Lactated Ringer's (Ringers, Lactated) 1,000 mls @ 150 mls/hr IV ASDIRECTED MAYKEL Last Admin: 05/29/19 06:37 Dose: 150 mls/hr Potassium Chloride 20 meq/ (Lactated Ringer's) 1,010 mls @ 150 mls/hr IV Q7H [facility] Stop: 05/29/19 16:59 Last Admin: 05/29/19 18:20 Dose: Not Given Iopamidol (Isovue-370 (76%)) 75 ml IV ONETIME ONE Stop: 05/26/19 19:05 Last Admin: 05/26/19 19:20 Dose: 75 ml Morphine Sulfate (Morphine) 4 mg IVPUSH ONETIME ONE Stop: 05/26/19 19:14 Last Admin: 05/26/19 19:29 Dose: 4 mg Morphine Sulfate (Morphine) 2 mg IVPUSH Q1H PRN PRN Reason: Pain (severe 7-10) Pantoprazole Sodium (Protonix Iv) 40 mg IVPUSH Q24H [facility] Last Admin: 05/29/19 23:09 Dose: 40 mg
== END 2019-05-31 11:35 | disposition home or self-care (01) | DRG 225 ==
LOC: FB.ED 17:28 → FB.MS 21:11 → OBSVTOIN 05-28 00:10
PROVIDERS: ADMIT Surgery; ATTEND Surgery
PROC: 0DTJ0ZZ Resection of Appendix, Open Approach (ICD-10-PCS; principal; 2019-05-27)
PROC: 0WJG4ZZ Inspection of Peritoneal Cavity, Percutaneous Endoscopic Approach (ICD-10-PCS; 2019-05-27)
PROC: 3E1M38Z Irrigation of Peritoneal Cavity using Irrigating Substance, Percutaneous Approach (ICD-10-PCS; 2019-05-27)
DX: K50.00 Crohn's disease of small intestine without complications (principal); K65.9 Peritonitis, unspecified; Z53.31 Laparoscopic surgical procedure converted to open procedure; Z88.8 Allergy status to other drugs, medicaments and biological substances
CPT/HCPCS: 36415; 74177; 80053; 81001; 82150; 83605; 84702; 85025; 85610; 86140; 87040; 87070; 87075; 87205; 94150; 96361; 96365; 96366; 96374; 96375; 96376; 99285-25; C9113; G0378; J0131; J0330; J0694; J1100; J1170; J1720; J1885; J2001; J2250; J2270; J2405; J2543; J2704; J2710; J3010; J3480; J3490; J7030; J7050; J7120; Q9967